=== PATIENT | male | born 1955 | race American Indian/Alaskan Native ===

== ENCOUNTER 2016-08-13 17:52 | Emergency (ER) | payer MEDICARE ==
--- NOTE | 2016-08-13 18:34 | Emergency Department Report ---
Chief Complaint: Psych Stated Complaint: MH EVAL Time Seen by Provider: 08/13/16 18:28 - HPI History of Present Illness: 61-year-old male with history of bipolar depression brought in by police post getting into an argument at his personal detention. Patient states he was getting evicted so he got mad and started cursing with a hammer in his hand. Denies suicidal or homicidal ideations. - ROS Review of Systems: Per HPI - Exam Vital Signs: Vital Signs 08/13/16 18:14 Temperature 99.1 F Pulse Rate 90 Respiratory 18 Rate Blood Pressure 123/74 O2 Sat by Pulse 97 Oximetry Physical Exam: General: 61-year-old male in no acute distress. Well-developed, well-nourished. CV: Regular rate and rhythm. Lungs: Clear to auscultation bilaterally. MSE screening note: Focused history and physical exam performed. Due to findings the following was ordered: ED Disposition for MSE Condition: Stable
[2016-08-13 19:21] LABS: Basophils % (Auto) 0.8 % (0.0-1.8); Eosinophils % (Auto) 1.8 % (0.0-4.3); Hematocrit 41.4 % (35.5-45.6); Hemoglobin 13.7 gm/dl (11.8-15.2); Mean Corpuscular HGB Conc 33 % (32-34); Mean Corpuscular Hemoglobin 29 pg (28-32); Mean Corpuscular Volume 86 fl (84-94); Platelet Count 167 K/mm3 (140-440); Red Cell Distribution Width 13.9 % (13.2-15.2); White Blood Count 8.2 K/mm3 (4.5-11.0)
[2016-08-13 19:43] LABS: BUN/Creatinine Ratio 15.45; Blood Urea Nitrogen 17 mg/dL (9-20); Calcium 8.9 mg/dL (8.4-10.2); Carbon Dioxide 26 mmol/L (22-30); Chloride 99.7 mmol/L (98-107); Glucose 125 mg/dL (75-100); Potassium 4.5 mmol/L (3.6-5.0); Sodium 137 mmol/L (137-145)
[2016-08-13 19:45] LABS: Anion Gap 16 mmol/L
[2016-08-14 02:08] LABS: Urine Drugs of Abuse Note Disclamer
[2016-08-14 02:37] LABS: Bilirubin,Urine NEG (Negative); Blood,Urine SM (Negative); Ketones,Urine NEG (Negative); Leukocyte Esterase,Urine TR (Negative); Mucus,Urine FEW /HPF; Nitrite,Urine NEG (Negative); Protein,Urine <15 mg/dL mg/dL (Negative); RBC,Urine < 1.0 /HPF (0.0-6.0); Urobilinogen,Urine < 2.0 mg/dL (<2.0); WBC,Urine < 1.0 /HPF (0.0-6.0)
--- NOTE | 2016-08-14 03:52 | Emergency Department Report ---
ED General Adult HPI - General Chief complaint: Psych Stated complaint: MH EVAL Time Seen by Provider: 08/13/16 18:28 Source: patient, RN notes reviewed, old records reviewed Mode of arrival: Ambulatory Limitations: No Limitations - History of Present Illness Initial comments: This is a 61-year-old male, previously unknown to me. He is brought to the hospital for evaluation of aggressive behavior. Patient reports being evicted for inappropriately touching staff, he then became upset, and was holding a hammer. He is apologetic about his behavior, he is not homicidal, he is not suicidal, he does not have access to guns or firearms, and he is not experiencing hallucinations. He expresses remorse about his behavior. He denies headache, neck pain, chest pain, abdominal pain, shortness of breath. He has no acute complaints at this time. The patient was seen in conjunction with Mr. Kraig Mijares, the emergency department mental health ecological risk assessor. We both agree that the patient does not meet involuntary folder 1013 criteria. Patient is referred to follow up with [facility] services at [phone]. -: Sudden Severity scale (0 -10): 0 Consistency: now resolved Improves with: none Worsens with: none Associated Symptoms: denies: confusion, chest pain, cough, diaphoresis, fever/ chills, headaches, loss of appetite, malaise, nausea/vomiting, rash, seizure, shortness of breath, syncope, weakness - Related Data Home Medications Medication Instructions Recorded Confirmed Last Taken Benztropine [Cogentin] 1 mg PO BID 07/10/16 07/10/16 07/09/16 Docusate Sodium [Colace] 100 mg PO QAM PRN 07/10/16 07/10/16 07/09/16 Dutasteride [Avodart] 0.5 mg PO QHS 07/10/16 07/10/16 07/09/16 Ergocalciferol (Vitamin D2) 2,000 unit PO QAM 07/10/16 07/10/16 07/09/16 [Vitamin D2] FLUoxetine [PROzac] 20 mg PO QAM 07/10/16 07/10/16 07/09/16 Gabapentin [Neurontin] 400 mg PO Q8HR 07/10/16 07/10/16 07/09/16 Haloperidol [Haldol] 10 mg PO QAM 07/10/16 07/10/16 07/09/16 Haloperidol [Haldol] 15 mg PO QHS 07/10/16 07/10/16 07/09/16 Insulin Glargine [Lantus] 20 unit SUB-Q QHS 07/10/16 07/10/16 07/09/16 Lurasidone HCl [Latuda] 80 mg PO QDAY 07/10/16 07/10/16 07/09/16 Pantoprazole [Protonix] 40 mg PO QAM 07/10/16 07/10/16 07/09/16 Rosuvastatin (Nf) [Crestor] 10 mg PO QHS 07/10/16 07/10/16 07/09/16 Sitagliptin Phos/Metformin HCl 1 tab PO QAM 07/10/16 07/10/16 07/09/16 [Janumet XR 100-1,000 mg] Allergies Allergy/AdvReac Type Severity Reaction Status Date / Time No Known Allergies Allergy Verified 08/13/16 18:21 ED Review of Systems ROS: Stated complaint: MH EVAL Other details as noted in HPI Constitutional: denies: fever, malaise Eyes: denies: vision change ENT: denies: epistaxis, congestion Respiratory: denies: cough Cardiovascular: denies: chest pain Gastrointestinal: denies: abdominal pain Genitourinary: denies: urgency, dysuria Musculoskeletal: denies: back pain, joint swelling, arthralgia Neurological: denies: headache, weakness, paresthesias Psychiatric: denies: homicidal thoughts, suicidal thoughts ED Past Medical Hx - Past Medical History Hx Diabetes: Yes Hx Psychiatric Treatment: Yes (bipolar, DEPRESSION, schizophrenia, inpatient, outpatient) Additional medical history: hi cholest - Surgical History Past Surgical History?: No - Social History Smoking Status: Never Smoker Substance Use Type: Prescribed - Medications Home Medications: Home Medications Medication Instructions Recorded Confirmed Last Taken Type Benztropine [Cogentin] 1 mg PO BID 07/10/16 07/10/16 07/09/16 History Docusate Sodium [Colace] 100 mg PO QAM PRN 07/10/16 07/10/16 07/09/16 History Dutasteride [Avodart] 0.5 mg PO QHS 07/10/16 07/10/16 07/09/16 History Ergocalciferol (Vitamin D2) 2,000 unit PO QAM 07/10/16 07/10/16 07/09/16 History [Vitamin D2] FLUoxetine [PROzac] 20 mg PO QAM 07/10/16 07/10/16 07/09/16 History Gabapentin [Neurontin] 400 mg PO Q8HR 07/10/16 07/10/16 07/09/16 History Haloperidol [Haldol] 10 mg PO QAM 07/10/16 07/10/16 07/09/16 History Haloperidol [Haldol] 15 mg PO QHS 07/10/16 07/10/16 07/09/16 History Insulin Glargine [Lantus] 20 unit SUB-Q QHS 07/10/16 07/10/16 07/09/16 History Lurasidone HCl [Latuda] 80 mg PO QDAY 07/10/16 07/10/16 07/09/16 History Pantoprazole [Protonix] 40 mg PO QAM 07/10/16 07/10/16 07/09/16 History Rosuvastatin (Nf) [Crestor] 10 mg PO QHS 07/10/16 07/10/16 07/09/16 History Sitagliptin Phos/Metformin HCl 1 tab PO QAM 07/10/16 07/10/16 07/09/16 History [Janumet XR 100-1,000 mg] ED Physical Exam - General Limitations: No Limitations General appearance: alert, in no apparent distress - Head Head exam: Present: atraumatic, normocephalic - Eye Eye exam: Present: normal appearance, EOMI. Absent: nystagmus - ENT ENT exam: Present: normal exam, normal orophraynx, mucous membranes moist, normal external ear exam - Neck Neck exam: Present: normal inspection, full ROM. Absent: tenderness, meningismus - Respiratory Respiratory exam: Present: normal lung sounds bilaterally. Absent: respiratory distress - Cardiovascular Cardiovascular Exam: Present: regular rate, normal rhythm, normal heart sounds. Absent: bradycardia, tachycardia, irregular rhythm, systolic murmur, diastolic murmur, rubs, gallop - GI/Abdominal GI/Abdominal exam: Present: soft, normal bowel sounds. Absent: distended, tenderness, guarding, rebound, rigid, pulsatile mass - Rectal Rectal exam: Present: deferred - Extremities Exam Extremities exam: Present: normal inspection, full ROM, normal capillary refill. Absent: tenderness, pedal edema, joint swelling, calf tenderness - Back Exam Back exam: Present: normal inspection, full ROM. Absent: tenderness, CVA tenderness (R), CVA tenderness (L), muscle spasm, paraspinal tenderness, vertebral tenderness - Neurological Exam Neurological exam: Present: alert, oriented X3, normal gait, other (Extraocular movements intact. Tongue midline. No facial droop. Facial sensation intact to light touch in the V1, V2, V3 distribution bilaterally. 5 and 5 strength in 4 extremities.. Sensation is intact to light touch in 4 extremities.). Absent : motor sensory deficit - Psychiatric Psychiatric exam: Absent: homicidal ideation, suicidal ideation - Skin Skin exam: Present: warm, dry, intact, normal color. Absent: rash ED Course Vital Signs 08/13/16 08/14/16 08/14/16 18:14 00:55 04:29 Temperature 99.1 F 98.2 F Pulse Rate 90 86 80 Respiratory 18 20 18 Rate Blood Pressure 123/74 Blood Pressure 135/71 132/70 [Right] O2 Sat by Pulse 97 100 99 Oximetry - Reevaluation(s) Reevaluation #1: 08/14/16 04:40 Differential diagnosis: Mood disorder, general medical evaluation Assessment and plan: 61-year-old male with resolved aggressive behavior. He is not homicidal or suicidal. He is alert and oriented 3. He has a GCS of 15, with an NIH score of 0. His physical examination is unremarkable. He does not meet involuntary hold or 1013 criteria. He will be discharged. 08/14/16 04:40 ED Medical Decision Making - Lab Data Result diagrams: 08/13/16 19:04 08/13/16 19:04 Vital Signs 08/13/16 08/14/16 08/14/16 18:14 00:55 04:29 Temperature 99.1 F 98.2 F Pulse Rate 90 86 80 Respiratory 18 20 18 Rate Blood Pressure 123/74 Blood Pressure 135/71 132/70 [Right] O2 Sat by Pulse 97 100 99 Oximetry Lab Results 08/13/16 08/13/16 08/13/16 Range/Units 19:04 19:04 19:04 WBC 8.2 (4.5-11.0) K/mm3 RBC 4.80 (3.65-5.03) M/mm3 Hgb 13.7 (11.8-15.2) gm/dl Hct 41.4 (35.5-45.6) % MCV 86 (84-94) fl MCH 29 (28-32) pg MCHC 33 (32-34) % RDW 13.9 (13.2-15.2) % Plt Count 167 (140-440) K/mm3 Lymph % (Auto) 16.4 (13.4-35.0) % [place] % (Auto) 10.0 H (0.0-7.3) % Eos % (Auto) 1.8 (0.0-4.3) % Baso % (Auto) 0.8 (0.0-1.8) % Lymph # 1.3 (1.2-5.4) K/mm3 [place] # 0.8 (0.0-0.8) K/mm3 Eos # 0.1 (0.0-0.4) K/mm3 Baso # 0.1 (0.0-0.1) K/mm3 Seg Neutrophils % 71.0 H (40.0-70.0) % Seg Neutrophils # 5.8 (1.8-7.7) K/mm3 Sodium 137 (137-145) mmol/L Potassium 4.5 (3.6-5.0) mmol/L Chloride 99.7 (98-107) mmol/L Carbon Dioxide 26 (22-30) mmol/L Anion Gap 16 mmol/L BUN 17 (9-20) mg/dL Creatinine 1.1 (0.8-1.5) mg/dL Estimated GFR > 60 ml/min BUN/Creatinine Ratio 15.45 % Glucose 125 H (75-100) mg/dL Calcium 8.9 (8.4-10.2) mg/dL Urine Color (Yellow) Urine Turbidity (Clear) Urine pH (5.0-7.0) Ur Specific [place] (1.003-1.030) Urine Protein (Negative) mg/dL Urine Glucose (UA) (Negative) mg/dL Urine Ketones (Negative) mg/dL Urine Blood (Negative) Urine Nitrite (Negative) Urine Bilirubin (Negative) Urine Urobilinogen (<2.0) mg/dL Ur Leukocyte Esterase (Negative) Urine WBC (Auto) (0.0-6.0) /HPF Urine RBC (Auto) (0.0-6.0) /HPF U Epithel Cells (Auto) (0-13.0) /HPF Urine Mucus /HPF Urine Opiates Screen Urine Methadone Screen Ur Barbiturates Screen Ur Phencyclidine Scrn Ur Amphetamines Screen U Benzodiazepines Scrn Urine Cocaine Screen U Marijuana (THC) Screen Drugs of Abuse Note Plasma/Serum Alcohol < 0.01 (0-0.07) gm% 08/14/16 08/14/16 Range/Units 01:02 01:02 WBC (4.5-11.0) K/mm3 RBC (3.65-5.03) M/mm3 Hgb (11.8-15.2) gm/dl Hct (35.5-45.6) % MCV (84-94) fl MCH (28-32) pg MCHC (32-34) % RDW (13.2-15.2) % Plt Count (140-440) K/mm3 Lymph % (Auto) (13.4-35.0) % [place] % (Auto) (0.0-7.3) % Eos % (Auto) (0.0-4.3) % Baso % (Auto) (0.0-1.8) % Lymph # (1.2-5.4) K/mm3 [place] # (0.0-0.8) K/mm3 Eos # (0.0-0.4) K/mm3 Baso # (0.0-0.1) K/mm3 Seg Neutrophils % (40.0-70.0) % Seg Neutrophils # (1.8-7.7) K/mm3 Sodium (137-145) mmol/L Potassium (3.6-5.0) mmol/L Chloride (98-107) mmol/L Carbon Dioxide (22-30) mmol/L Anion Gap mmol/L BUN (9-20) mg/dL Creatinine (0.8-1.5) mg/dL Estimated GFR ml/min BUN/Creatinine Ratio % Glucose (75-100) mg/dL Calcium (8.4-10.2) mg/dL Urine Color Straw (Yellow) Urine Turbidity Clear (Clear) Urine pH 5.0 (5.0-7.0) Ur Specific [place] 1.005 (1.003-1.030) Urine Protein <15 mg/dl (Negative) mg/dL Urine Glucose (UA) 150 (Negative) mg/dL Urine Ketones Neg (Negative) mg/dL Urine Blood Sm (Negative) Urine Nitrite Neg (Negative) Urine Bilirubin Neg (Negative) Urine Urobilinogen < 2.0 (<2.0) mg/dL Ur Leukocyte Esterase Tr (Negative) Urine WBC (Auto) < 1.0 (0.0-6.0) /HPF Urine RBC (Auto) < 1.0 (0.0-6.0) /HPF U Epithel Cells (Auto) < 1.0 (0-13.0) /HPF Urine Mucus Few /HPF Urine Opiates Screen Presumptive negative Urine Methadone Screen Presumptive negative Ur Barbiturates Screen Presumptive negative Ur Phencyclidine Scrn Presumptive negative Ur Amphetamines Screen Presumptive negative U Benzodiazepines Scrn Presumptive negative Urine Cocaine Screen Presumptive negative U Marijuana (THC) Screen Presumptive negative Drugs of Abuse Note Disclamer Plasma/Serum Alcohol (0-0.07) gm% Critical care attestation.: If time is entered above; I have spent that time in minutes in the direct care of this critically ill patient, excluding procedure time. ED Disposition Clinical Impression: Mood disorder Disposition: DISCHARGED TO HOME OR SELFCARE Is pt being admited?: No Does the pt Need Aspirin: No Condition: Stable Instructions: Mood Disorders (ED) Additional Instructions: Please continue your current outpatient medications. Follow up with the primary care doctor within the next week. Contact [facility] at [phone] at your convenience. Return to the ER right away with headache, neck pain, chest pain, abdominal pain, shortness of breath, or any new, worsening or different symptoms not present on your initial ER evaluation. Dr. Child is a local primary care doctor. Referrals: PRIMARY MD BONG [Primary Care Provider] - 3-5 Days KATARINA CHILD MD [Staff Physician] - 3-5 Days
[2016-08-14 04:30] VITALS: BP 132/70
== END 2016-08-14 04:55 | disposition home or self-care (01) ==
LOC: ED 17:52
DX: F39 Unspecified mood [affective] disorder (principal); E11.9 Type 2 diabetes mellitus without complications; F31.9 Bipolar disorder, unspecified; F20.9 Schizophrenia, unspecified; E78.00 Pure hypercholesterolemia, unspecified
CPT/HCPCS: 36415; 80048; 81001; 85025; 99283; G0479; G0480; 80307; 80320

== ENCOUNTER 2017-05-01 19:45 | Emergency (ER) | payer MEDICARE ==
[2017-05-01 20:47] LABS: Basophils % (Auto) 0.9 % (0.0-1.8); Eosinophils % (Auto) 1.2 % (0.0-4.3); Hemoglobin 14.3 gm/dl (11.8-15.2); Mean Corpuscular HGB Conc 34 % (32-34); Mean Corpuscular Hemoglobin 30 pg (28-32); Mean Corpuscular Volume 89 fl (84-94); Platelet Count 152 K/mm3 (140-440); Red Blood Count 4.74 M/mm3 (3.65-5.03); Red Cell Distribution Width 13.2 % (13.2-15.2); White Blood Count 6.8 K/mm3 (4.5-11.0)
[2017-05-01 20:52] LABS: Anion Gap 18 mmol/L; BUN/Creatinine Ratio 10.83; Blood Urea Nitrogen 13 mg/dL (9-20); Calcium 9.3 mg/dL (8.4-10.2); Carbon Dioxide 28 mmol/L (22-30); Chloride 91.3 mmol/L (98-107); Glucose 500 mg/dL (75-100); Potassium 5.1 mmol/L (3.6-5.0); Sodium 132 mmol/L (137-145)
[2017-05-01 21:54] LABS: Bilirubin,Urine NEG (Negative)
[2017-05-01 21:55] LABS: Blood,Urine NEG (Negative); Ketones,Urine NEG (Negative); Leukocyte Esterase,Urine NEG (Negative); Nitrite,Urine NEG (Negative); Protein,Urine <15 mg/dL mg/dL (Negative); Urobilinogen,Urine < 2.0 mg/dL (<2.0)
[2017-05-02] MEDS ORDERED: GLUCOPHAGE PO ONE (04:15)
[2017-05-02] MEDS ORDERED: NACL 0.9% 1000 ML 1,000 ML IV ONE (08:24)
[2017-05-02] MEDS ORDERED: NEURONTIN PO ONE (08:25)
--- NOTE | 2017-05-02 09:43 | Emergency Department Report ---
HPI - General Chief Complaint: Hyperglycemia Time Seen by Provider: 05/02/17 07:21 - HPI HPI: The patient is a 61-year-old male with a history of diabetes and peripheral neuropathy who presents for evaluation of leg pain. The patient reports bilateral lower leg pain for the past one day, 10/10 in severity, burning and sharp in quality, exacerbated with movement of the lower legs. The patient denies fever, trauma to the legs or feet, redness, change, motor deficit, or open wounds. ED Past Medical Hx - Past Medical History Hx Diabetes: Yes Hx Psychiatric Treatment: Yes (bipolar, DEPRESSION, schizophrenia, inpatient, outpatient) Additional medical history: hi cholest - Social History Smoking Status: Never Smoker Substance Use Type: None - Medications Home Medications: Home Medications Medication Instructions Recorded Confirmed Last Taken Type Benztropine [Cogentin] 1 mg PO BID 07/10/16 07/10/16 07/09/16 History Docusate Sodium [Colace] 100 mg PO QAM PRN 07/10/16 07/10/16 07/09/16 History Dutasteride [Avodart] 0.5 mg PO QHS 07/10/16 07/10/16 07/09/16 History Ergocalciferol (Vitamin D2) 2,000 unit PO QAM 07/10/16 07/10/16 07/09/16 History [Vitamin D2] FLUoxetine [PROzac] 20 mg PO QAM 07/10/16 07/10/16 07/09/16 History Haloperidol [Haldol] 10 mg PO QAM 07/10/16 07/10/16 07/09/16 History Haloperidol [Haldol] 15 mg PO QHS 07/10/16 07/10/16 07/09/16 History Insulin Glargine [Lantus] 20 unit SUB-Q QHS 07/10/16 07/10/16 07/09/16 History Lurasidone HCl [Latuda] 80 mg PO QDAY 07/10/16 07/10/16 07/09/16 History Pantoprazole [Protonix] 40 mg PO QAM 07/10/16 07/10/16 07/09/16 History Rosuvastatin (Nf) [Crestor] 10 mg PO QHS 07/10/16 07/10/16 07/09/16 History Sitagliptin Phos/Metformin HCl 1 tab PO QAM 07/10/16 07/10/16 07/09/16 History [Janumet XR 100-1,000 mg] Gabapentin [Neurontin] 300 mg PO Q8HR #20 capsule 05/02/17 Unknown Rx traMADol [Ultram 50 MG tab] 50 mg PO Q6HR PRN #15 tablet 05/02/17 Unknown Rx ED Review of Systems ROS: Stated complaint: HIGH BLOOD SUGAR Other details as noted in HPI Constitutional: denies: fever ENT: denies: throat or neck pain Respiratory: denies: cough, shortness of breath Cardiovascular: denies: chest pain Endocrine: denies unexplained weight loss or gain Gastrointestinal: denies: abdominal pain, nausea Genitourinary: denies: dysuria Musculoskeletal: reports leg pain denies: leg swelling Skin: denies: rash Neurological: denies: headache Hematological/Lymphatic: denies: easy bleeding or easy bruising Psych: denies sadness or hopelessness Physical Exam - Physical Exam Vital Signs: Vital Signs 05/01/17 05/02/17 05/02/17 20:05 00:16 02:10 Temperature 98.3 F 98.0 F Pulse Rate 73 69 Respiratory 18 20 20 Rate Blood Pressure 133/67 125/66 Blood Pressure 133/67 [Left] O2 Sat by Pulse 98 99 99 Oximetry 05/02/17 05/02/17 05/02/17 02:48 03:00 03:15 Temperature Pulse Rate Respiratory Rate Blood Pressure 123/60 123/60 Blood Pressure [Left] O2 Sat by Pulse 98 95 98 Oximetry 05/02/17 05/02/17 05/02/17 03:30 03:34 03:45 Temperature 98.6 F Pulse Rate 51 L Respiratory 18 Rate Blood Pressure 122/63 123/60 Blood Pressure 134/63 [Left] O2 Sat by Pulse 95 99 96 Oximetry 05/02/17 05/02/17 05/02/17 04:01 04:30 05:00 Temperature Pulse Rate Respiratory Rate Blood Pressure 134/65 116/55 120/56 Blood Pressure [Left] O2 Sat by Pulse 95 94 94 Oximetry 05/02/17 05/02/17 05/02/17 05:37 06:00 06:30 Temperature Pulse Rate Respiratory Rate Blood Pressure 120/56 139/55 117/56 Blood Pressure [Left] O2 Sat by Pulse 99 97 97 Oximetry 05/02/17 05/02/17 05/02/17 07:30 07:49 08:00 Temperature Pulse Rate 64 Respiratory 16 Rate Blood Pressure 126/40 126/40 Blood Pressure 126/40 [Left] O2 Sat by Pulse 98 98 96 Oximetry 05/02/17 08:33 Temperature Pulse Rate Respiratory Rate Blood Pressure 115/43 Blood Pressure [Left] O2 Sat by Pulse 91 Oximetry Physical Exam: General: well-nourished, well-developed, no acute distress Head: Normocephalic, atraumatic Eyes: normal sclera ENT: Mucous membranes are pale and dry Neck: No neck stiffness, no cervical adenopathy Respiratory: Breath sounds equal bilaterally, no wheezing, rales, or rhonchi Cardio: S1 and S2 present, no murmurs, rubs, gallops, capillary refill is delayed Abdomen: Normoactive bowel sounds, soft abdomen, no rigidity, no guarding or rebound tenderness Chest WALL/Back: No tenderness to palpation of the chest wall, no CVA tenderness with percussion Musc: Chest palpation presents to the bilateral anterior and posterior distal lower legs, no sensation or motor deficit, leg compartments are soft and pliable , no signs compartments syndrome No pitting edema Skin: No rash Neuro: no facial drooping, normal speech Psych: Normal affect ED Course Vital Signs 05/01/17 05/02/17 05/02/17 20:05 00:16 02:10 Temperature 98.3 F 98.0 F Pulse Rate 73 69 Respiratory 18 20 20 Rate Blood Pressure 133/67 125/66 Blood Pressure 133/67 [Left] O2 Sat by Pulse 98 99 99 Oximetry 05/02/17 05/02/17 05/02/17 02:48 03:00 03:15 Temperature Pulse Rate Respiratory Rate Blood Pressure 123/60 123/60 Blood Pressure [Left] O2 Sat by Pulse 98 95 98 Oximetry 05/02/17 05/02/17 05/02/17 03:30 03:34 03:45 Temperature 98.6 F Pulse Rate 51 L Respiratory 18 Rate Blood Pressure 122/63 123/60 Blood Pressure 134/63 [Left] O2 Sat by Pulse 95 99 96 Oximetry 05/02/17 05/02/17 05/02/17 04:01 04:30 05:00 Temperature Pulse Rate Respiratory Rate Blood Pressure 134/65 116/55 120/56 Blood Pressure [Left] O2 Sat by Pulse 95 94 94 Oximetry 05/02/17 05/02/17 05/02/17 05:37 06:00 06:30 Temperature Pulse Rate Respiratory Rate Blood Pressure 120/56 139/55 117/56 Blood Pressure [Left] O2 Sat by Pulse 99 97 97 Oximetry 05/02/17 05/02/17 05/02/17 07:30 07:49 08:00 Temperature Pulse Rate 64 Respiratory 16 Rate Blood Pressure 126/40 126/40 Blood Pressure 126/40 [Left] O2 Sat by Pulse 98 98 96 Oximetry 05/02/17 08:33 Temperature Pulse Rate Respiratory Rate Blood Pressure 115/43 Blood Pressure [Left] O2 Sat by Pulse 91 Oximetry ED Medical Decision Making - Lab Data Result diagrams: 05/01/17 20:18 05/01/17 20:18 - Medical Decision Making The patient was seen and examined by myself. The patient is placed on a loss prevention agent and continuous pulse ox. On initial evaluation, the patient was found to be in no distress. Evaluation orders are placed. The patient is given , metformin for his elevated blood sugar. Lab results revealed elevated blood sugar 500, and otherwise labs were non-concerning including normal bicarbonate level and anion gap, WBC, hemoglobin, hematocrit, electrolytes, renal function. The patient refuses normal saline fluid bolus for treatment of his dehydration , insulin for further treatment of his hypertension, and pain medicine. The patient was reevaluated and reported that their symptoms were improved. Reevaluation patient blood sugar has decreased to 280. The patient is stable for discharge with outpatient follow-up. The patient is given follow-up and return instructions. The patient expressed understanding and agreed with the plan. The patient is discharged in stable condition. Critical care attestation.: If time is entered above; I have spent that time in minutes in the direct care of this critically ill patient, excluding procedure time. ED Disposition Clinical Impression: Acute hyperglycemia, Dehydration, Pain in both lower legs Disposition: DC-01 TO HOME OR SELFCARE Is pt being admited?: No Does the pt Need Aspirin: No Condition: Stable Instructions: Diabetic Neuropathy (ED), Peripheral Neuropathy (ED), Musculoskeletal Pain (ED), Diabetic Hyperglycemia (ED) Prescriptions: Gabapentin [Neurontin] 300 mg PO Q8HR #20 capsule traMADol [Ultram 50 MG tab] 50 mg PO Q6HR PRN #15 tablet PRN Reason: Pain Referrals: BEAU MOORE MD [Primary Care Provider] - 3-5 Days Time of Disposition: 09:34
[2017-05-02 10:22] VITALS: BP 115/43
== END 2017-05-02 10:10 | disposition home or self-care (01) ==
LOC: ED 19:45
DX: M79.604 Pain in right leg (principal); M79.605 Pain in left leg; E86.0 Dehydration; E11.65 Type 2 diabetes mellitus with hyperglycemia; F20.9 Schizophrenia, unspecified; F31.9 Bipolar disorder, unspecified
CPT/HCPCS: 36415; 80048; 81001; 82805; 82962; 85025

== ENCOUNTER 2017-12-16 22:44 | Emergency (ER) | payer MEDICARE ==
[2017-12-16 23:38] VITALS: BP 134/61
--- NOTE | 2017-12-17 04:53 | Emergency Department Report ---
ED Back Pain/Injury HPI - General Chief Complaint: Back Pain/Injury Stated Complaint: BACK PAIN; LEG PAIN Time Seen by Provider: 12/17/17 04:36 Source: patient Limitations: No Limitations - History of Present Illness Initial Comments: This is a 62-year-old -Serbian male who presents with low back pain and neck pain from a fall 3 days ago. Patient reports initial fall one month ago and he has been having then low back pain and numbness and tingling every since the fall. He has tried taking an [id number] tylenol with no improvement of symptoms. Pain is aggravated by standing, walking and any kind of movement. Denies hearing a popping sound, swelling, redness, and numbness or tingling. MD Complaint: back pain -: days(s) (3 days) Similar Symptoms Previously: No Place: home Radiation: none Severity: mild Severity scale (0 -10): 6 Quality: aching Consistency: intermittent Improves With: none Worsens With: movement, walking Context: fall Associated Symptoms: denies other symptoms Treatments Prior to Arrival: acetaminophen - Related Data Home Medications Medication Instructions Recorded Confirmed Last Taken Benztropine [Cogentin] 1 mg PO BID 07/10/16 07/10/16 07/09/16 Docusate Sodium [Colace] 100 mg PO QAM PRN 07/10/16 07/10/16 07/09/16 Dutasteride [Avodart] 0.5 mg PO QHS 07/10/16 07/10/16 07/09/16 Ergocalciferol (Vitamin D2) 2,000 unit PO QAM 07/10/16 07/10/16 07/09/16 [Vitamin D2] FLUoxetine [PROzac] 20 mg PO QAM 07/10/16 07/10/16 07/09/16 Haloperidol [Haldol] 10 mg PO QAM 07/10/16 07/10/16 07/09/16 Haloperidol [Haldol] 15 mg PO QHS 07/10/16 07/10/16 07/09/16 Insulin Glargine [Lantus] 20 unit SUB-Q QHS 07/10/16 07/10/16 07/09/16 Lurasidone HCl [Latuda] 80 mg PO QDAY 07/10/16 07/10/16 07/09/16 Pantoprazole [Protonix] 40 mg PO QAM 07/10/16 07/10/16 07/09/16 Rosuvastatin (Nf) [Crestor] 10 mg PO QHS 07/10/16 07/10/16 07/09/16 Sitagliptin Phos/Metformin HCl 1 tab PO QAM 07/10/16 07/10/16 07/09/16 [Janumet XR 100-1,000 mg] Previous Rx's Medication Instructions Recorded Last Taken Type Gabapentin [Neurontin] 300 mg PO Q8HR #20 capsule 05/02/17 Unknown Rx traMADol [Ultram 50 MG tab] 50 mg PO Q6HR PRN #15 tablet 05/02/17 Unknown Rx Diclofenac Sodium 50 mg PO BID PRN #20 tablet. 12/17/17 Unknown Rx Allergies Allergy/AdvReac Type Severity Reaction Status Date / Time No Known Allergies Allergy Verified 08/13/16 18:21 ED Review of Systems ROS: Stated complaint: BACK PAIN; LEG PAIN Other details as noted in HPI Constitutional: denies: chills, fever Respiratory: denies: cough, shortness of breath, wheezing Cardiovascular: denies: chest pain, palpitations Gastrointestinal: denies: abdominal pain, nausea, diarrhea Musculoskeletal: back pain (low back pain), arthralgia (bilateral hip pain). denies: joint swelling Neurological: denies: headache, weakness, paresthesias Psychiatric: denies: anxiety, depression ED Past Medical Hx - Past Medical History [facility] ED Back Pain Physical Exam - Exam General: Vital signs noted. No distress. Alert and acting appropriately. Back/Abdomen: Yes Sacroiliac Tenderness, Yes Straight Leg Raise Pain, No Abdominal Tenderness, No Perithoracic Tenderness, No Perilumbar Tenderness, No Flank Tenderness Neuro: Yes Normal Sensation, Yes Normal DTR's, No Motor Weakness, No Normal Gait ED Course Vital Signs 12/16/17 23:35 Temperature 98.3 F Pulse Rate 68 Respiratory 18 Rate Blood Pressure 134/61 O2 Sat by Pulse 99 Oximetry ED Medical Decision Making - Radiology Data Radiology results: report reviewed EXAM: XR SPINE LUMBOSACRAL 2-3V HISTORY: low back pain s/p fall TECHNIQUE: Three views of the lumbar spine were submitted. FINDINGS: There is moderate narrowing of the L5-S1 disc with endplate spurring. The remaining lumbar discs are normal in height with endplate spurring at the L4-5 level. There is no evidence of fracture. The soft tissues are unremarkable. IMPRESSION: Degenerative changes lower lumbar spine with endplate spurring. No acute injury. EXAM: XR HIPS BILAT 2V W/PELVIS HISTORY: vinicius hip pain s/p fall TECHNIQUE: An AP view the pelvis was obtained with bilateral frogleg views of the hip joints. FINDINGS: Both hip joints appear well maintained. There is no evidence of fracture or joint effusion. The bony pelvic ring appears intact. The SI joints appear normal. The soft tissues are unremarkable. IMPRESSION: Within normal limits. - Medical Decision Making This is a 62 y.o. male presents with low back pain and bilateral heel pain status post fall 3 days ago. Patient was examined by me. Vitals are stable. X- ray L-spine and bilateral hips obtained. Degenerative changes lower lumbar spine with endplate spurring. No acute injury. No acute findings and bilateral hips. Patient informed of results. Start diclofenac for osteoarthritis. Follow up with PCP for management of pain. Critical care attestation.: If time is entered above; I have spent that time in minutes in the direct care of this critically ill patient, excluding procedure time. ED Disposition Clinical Impression: Osteoarthritis of back Qualifiers: Spinal osteoarthritis complication: with radiculopathy Qualified Code(s): M47.25 - Other spondylosis with radiculopathy, thoracolumbar region Disposition: TO HOME OR SELFCARE Is pt being admited?: No Does the pt Need Aspirin: No Condition: Stable Instructions: Osteoarthritis (ED), Lumbar Radiculopathy (ED) Additional Instructions: Rest Use ice or heat on affected area for 20 minutes and off for 2 hours. Take pain medication as needed for pain. Follow up with Primary Care Provider in 2-3 days. Prescriptions: Diclofenac Sodium 50 mg PO BID PRN #20 tablet.dr BAKER Reason: Pain Referrals: KIMBERLY JOSÉ MD [Primary Care Provider] - 3-5 Days [facility] [Outside] - 3-5 Days [facility] [Outside] - 3-5 Days Time of Disposition: 05:40 Print Language: TOGOLESE
--- NOTE | 2017-12-17 05:14 | XRay Report ---
FINAL REPORT EXAM: XR SPINE LUMBOSACRAL 2-3V HISTORY: low back pain s/p fall TECHNIQUE: Three views of the lumbar spine were submitted. FINDINGS: There is moderate narrowing of the L5-S1 disc with endplate spurring. The remaining lumbar discs are normal in height with endplate spurring at the L4-5 level. There is no evidence of fracture. The soft tissues are unremarkable. IMPRESSION: Degenerative changes lower lumbar spine with endplate spurring. No acute injury.
--- NOTE | 2017-12-17 05:15 | XRay Report ---
FINAL REPORT EXAM: XR HIPS BILAT 2V W/PELVIS HISTORY: vinicius hip pain s/p fall TECHNIQUE: An AP view the pelvis was obtained with bilateral frogleg views of the hip joints. FINDINGS: Both hip joints appear well maintained. There is no evidence of fracture or joint effusion. The bony pelvic ring appears intact. The SI joints appear normal. The soft tissues are unremarkable. IMPRESSION: Within normal limits.
== END 2017-12-17 05:58 | disposition home or self-care (01) ==
LOC: ED 22:44
DX: M47.25 Other spondylosis with radiculopathy, thoracolumbar region (principal); E78.00 Pure hypercholesterolemia, unspecified; Z79.899 Other long term (current) drug therapy
CPT/HCPCS: 72100; 73521; 99283

== ENCOUNTER 2018-02-10 13:56 | Emergency (ER) | payer MEDICARE ==
[2018-02-10 14:04] VITALS: BP 116/65
[2018-02-10] MEDS ORDERED: MOTRIN PO ONE (14:34)
--- NOTE | 2018-02-10 14:42 | Emergency Department Report ---
<ARI FONTENOT - Last Filed: 02/10/18 15:37> ED General Adult HPI - General Chief complaint: Extremity Injury, Lower Stated complaint: LEG PAIN Time Seen by Provider: 02/10/18 14:26 Source: patient, EMS Mode of arrival: Wheelchair Limitations: No Limitations - History of Present Illness Initial comments: This is a 62-year-old male nontoxic, well nourished in appearance, no acute signs of distress presents to the ED with c/o of acute on chronic bilateral leg pain and cramping 2-3 months. Patient denies any trauma. Patient states he has been diagnosed with diabetic neuropathy and receives Pain with minimal to no relief. Patient denies any numbness, tingling, fever, chills, nausea, vomiting, headache, stiff neck, back pain, chest pain or shortness of breath. She denies any urinary symptoms. Patient denies any body aches. Patient denies any weakness. Patient denies any recent travels. Patient denies any calf pain or calf tenderness or redness or swelling. Patient denies any drug allergies. Past medical history includes diabetes, psychiatric. -: month(s) (3) Location: lower extremity Radiation: non-radiation Severity scale (0 -10): 3 Quality: aching, other (cramping) Consistency: intermittent Improves with: none Worsens with: none Associated Symptoms: denies other symptoms. denies: confusion, chest pain, cough, diaphoresis, fever/chills, headaches, loss of appetite, malaise, nausea/ vomiting, rash, seizure, shortness of breath, syncope, weakness Treatments Prior to Arrival: none - Related Data Home Medications Medication Instructions Recorded Confirmed Last Taken Benztropine [Cogentin] 1 mg PO BID 07/10/16 07/10/16 07/09/16 Docusate Sodium [Colace] 100 mg PO QAM PRN 07/10/16 07/10/16 07/09/16 Dutasteride [Avodart] 0.5 mg PO QHS 07/10/16 07/10/16 07/09/16 Ergocalciferol (Vitamin D2) 2,000 unit PO QAM 07/10/16 07/10/16 07/09/16 [Vitamin D2] FLUoxetine [PROzac] 20 mg PO QAM 07/10/16 07/10/1616 Haloperidol [Haldol] 10 mg PO QAM 07/10/16 07/10/16 07/09/16 Haloperidol [Haldol] 15 mg PO QHS 07/10/16 07/10/16 07/09/16 Insulin Glargine [Lantus] 20 unit SUB-Q QHS 07/10/16 07/10/16 07/09/16 Lurasidone HCl [Latuda] 80 mg PO QDAY 07/10/16 07/10/16 07/09/16 Pantoprazole [Protonix] 40 mg PO QAM 07/10/16 07/10/16 07/09/16 Rosuvastatin (Nf) [Crestor] 10 mg PO QHS 07/10/16 07/10/16 07/09/16 Sitagliptin Phos/Metformin HCl 1 tab PO QAM 07/10/16 07/10/16 07/09/16 [Janumet XR 100-1,000 mg] Previous Rx's Medication Instructions Recorded Last Taken Type Gabapentin [Neurontin] 300 mg PO Q8HR #20 capsule 05/02/17 Unknown Rx traMADol [Ultram 50 MG tab] 50 mg PO Q6HR PRN #15 tablet 05/02/17 Unknown Rx Diclofenac Sodium 50 mg PO BID PRN #20 tablet. 12/17/17 Unknown Rx Ibuprofen [Motrin] 600 mg PO Q8H PRN #30 tablet 02/10/18 Unknown Rx Allergies Allergy/AdvReac Type Severity Reaction Status Date / Time No Known Allergies Allergy Verified 02/10/18 14:03 ED Review of Systems ROS: Stated complaint: LEG PAIN Other details as noted in HPI Constitutional: denies: chills, fever Eyes: denies: eye pain, eye discharge, vision change ENT: denies: ear pain, throat pain Respiratory: denies: cough, shortness of breath, wheezing Cardiovascular: denies: chest pain, palpitations Endocrine: no symptoms reported Gastrointestinal: denies: abdominal pain, nausea, diarrhea Genitourinary: denies: urgency, dysuria Musculoskeletal: arthralgia. denies: back pain, joint swelling Skin: denies: rash, lesions Neurological: denies: headache, weakness, paresthesias Psychiatric: denies: anxiety, depression Hematological/Lymphatic: denies: easy bleeding, easy bruising ED Past Medical Hx - Past Medical History Previous Medical History?: Yes Hx Diabetes: Yes Hx Psychiatric Treatment: Yes (bipolar, DEPRESSION, schizophrenia, inpatient, outpatient) Additional medical history: HLD - Surgical History Past Surgical History?: No - Social History Smoking Status: Never Smoker Substance Use Type: None - Medications Home Medications: Home Medications Medication Instructions Recorded Confirmed Last Taken Type Benztropine [Cogentin] 1 mg PO BID 07/10/16 07/10/16 07/09/16 History Docusate Sodium [Colace] 100 mg PO QAM PRN 07/10/16 07/10/16 07/09/16 History Dutasteride [Avodart] 0.5 mg PO QHS 07/10/16 07/10/16 07/09/16 History Ergocalciferol (Vitamin D2) 2,000 unit PO QAM 07/10/16 07/10/16 07/09/16 History [Vitamin D2] FLUoxetine [PROzac] 20 mg PO QAM 07/10/16 07/10/16 07/09/16 History Haloperidol [Haldol] 10 mg PO QAM 07/10/16 07/10/16 07/09/16 History Haloperidol [Haldol] 15 mg PO QHS 07/10/16 07/10/16 07/09/16 History Insulin Glargine [Lantus] 20 unit SUB-Q QHS 07/10/16 07/10/16 07/09/16 History Lurasidone HCl [Latuda] 80 mg PO QDAY 07/10/16 07/10/16 07/09/16 History Pantoprazole [Protonix] 40 mg PO QAM 07/10/16 07/10/16 07/09/16 History Rosuvastatin (Nf) [Crestor] 10 mg PO QHS 07/10/16 07/10/16 07/09/16 History Sitagliptin Phos/Metformin HCl 1 tab PO QAM 07/10/16 07/10/16 07/09/16 History [Janumet XR 100-1,000 mg] Gabapentin [Neurontin] 300 mg PO Q8HR #20 capsule 05/02/17 Unknown Rx traMADol [Ultram 50 MG tab] 50 mg PO Q6HR PRN #15 tablet 05/02/17 Unknown Rx Diclofenac Sodium 50 mg PO BID PRN #20 tablet. 12/17/17 Unknown Rx Ibuprofen [Motrin] 600 mg PO Q8H PRN #30 tablet 02/10/18 Unknown Rx ED Physical Exam - General Limitations: No Limitations General appearance: alert, in no apparent distress - Head Head exam: Present: atraumatic, normocephalic - Eye Eye exam: Present: normal appearance Pupils: Present: normal accommodation - ENT ENT exam: Present: normal exam, mucous membranes moist - Neck Neck exam: Present: normal inspection, full ROM. Absent: tenderness, meningismus, lymphadenopathy - Respiratory Respiratory exam: Present: normal lung sounds bilaterally. Absent: respiratory distress, wheezes, rales, rhonchi, stridor, chest wall tenderness, accessory muscle use, decreased breath sounds, prolonged expiratory - Cardiovascular Cardiovascular Exam: Present: regular rate, normal rhythm, normal heart sounds. Absent: bradycardia, tachycardia, irregular rhythm, systolic murmur, diastolic murmur, rubs, gallop - GI/Abdominal GI/Abdominal exam: Present: soft, normal bowel sounds. Absent: distended, tenderness, guarding, rebound, rigid, diminished bowel sounds - Rectal Rectal exam: Present: deferred - Extremities Exam Extremities exam: Present: normal inspection, full ROM, normal capillary refill. Absent: tenderness, pedal edema, joint swelling, calf tenderness - Expanded Lower Extremity Exam Left Hip exam: Present: normal inspection (bilateral exam), full ROM (bilateral exam) . Absent: tenderness, swelling Upper Leg exam: Present: normal inspection (bilateral exam), full ROM ( bilateral exam). Absent: tenderness, swelling Knee exam: Present: normal inspection (bilateral exam), full ROM (bilateral exam ). Absent: tenderness, swelling Lower Leg exam: Present: normal inspection (bilateral exam), full ROM ( bilateral exam). Absent: tenderness, swelling, abrasion, laceration, ecchymosis , deformity, crepidus, dislocation, erythema, palpable cord, Ana's sign Ankle exam: Present: normal inspection (bilateral exam), full ROM. Absent: tenderness, swelling Foot/Toe exam: Present: normal inspection (bilateral exam), full ROM (bilateral exam). Absent: tenderness, swelling Neuro vascular tendon exam: Present: no vascular compromise (bilateral exam). Absent: pulse deficit, abnormal cap refill, motor deficit, sensory deficit, tendon deficit, extremity cold to touch, pallor, abnormal 2-point discrimination , decreased fine/light touch, foot drop, peroneal nerve deficit, significant pain with passive ROM of distal joint Gait: Positive: observed and normal (bilateral exam) - Back Exam Back exam: Present: normal inspection, full ROM. Absent: tenderness, CVA tenderness (R), CVA tenderness (L), muscle spasm, paraspinal tenderness, vertebral tenderness, rash noted - Neurological Exam Neurological exam: Present: alert, oriented X3, normal gait - Psychiatric Psychiatric exam: Present: normal affect, normal mood - Skin Skin exam: Present: warm, dry, intact, normal color. Absent: rash ED Course Vital Signs 02/10/18 14:01 Temperature 98.4 F Pulse Rate 72 Respiratory 18 Rate Blood Pressure 116/65 O2 Sat by Pulse 99 Oximetry - Reevaluation(s) Reevaluation #1: 02/10/18 14:44 Patient is speaking in full sentences with no signs of distress noted. ED Medical Decision Making - Lab Data Result diagrams: 02/10/18 15:04 02/10/18 15:04 - Medical Decision Making This is a 62-year-old male that presents with diabetic neuropathy pain. Patient is stable and was examined by me. Labs obtained. CK obtained. Patient received Motrin in the ED which patient stated that his symptoms are improving and subsided. Patient is discharged with Motrin. Wells criteria 0 point for DVT. No calf pain or calf tenderness. Patient was instructed to Follow-up with a primary care doctor in 3-5 days or if symptoms worsen and continue return to emergency room as soon as possible. At time of discharge, the patient does not seem toxic or ill in appearance. No acute signs of distress noted. Patient agrees to discharge treatment plan of care. No further questions noted by the patient. Critical care attestation.: If time is entered above; I have spent that time in minutes in the direct care of this critically ill patient, excluding procedure time. ED Disposition Disposition: [id number]-01 TO HOME OR SELFCARE Is pt being admited?: No Does the pt Need Aspirin: No Condition: Stable Instructions: Diabetes Mellitus Type 2 in Adults (ED), Diabetic Neuropathy (ED) Additional Instructions: Follow-up with a primary care doctor in 3-5 days or if symptoms worsen and continue return to emergency room as soon as possible. Prescriptions: Ibuprofen [Motrin] 600 mg PO Q8H PRN #30 tablet PRN Reason: Pain Referrals: IRIS OCONNELL [Other] - 3-5 Days PRIMARY CARE, [Referring] - 3-5 Days KATARINA CHILD MD [Staff Physician] - 3-5 Days [facility] [Outside] - 3-5 Days <WILFREDO VINCENT - Last Filed: 02/10/18 17:05> ED Medical Decision Making - Lab Data Result diagrams: 02/10/18 15:04 02/10/18 15:04 - Medical Decision Making I did not see this patient. I was available for consultation the entire time the patient was in the department. I have reviewed the CASHIER ASSISTANT/PAs note and agree with the plan.
[2018-02-10 15:18] LABS: Basophils # (Auto) 0.1 K/mm3 (0.0-0.1); Basophils % (Auto) 1.3 % (0.0-1.8); Eosinophils # (Auto) 0.1 K/mm3 (0.0-0.4); Eosinophils % (Auto) 1.8 % (0.0-4.3); Lymphocytes # (Auto) 1.9 K/mm3 (1.2-5.4); Lymphocytes % (Auto) 34.5 % (13.4-35.0); Mean Corpuscular HGB Conc 33 % (32-34); Mean Corpuscular Hemoglobin 29 pg (28-32); Mean Corpuscular Volume 87 fl (84-94); Monocytes # (Auto) 0.5 K/mm3 (0.0-0.8); Monocytes % (Auto) 9.7 % (0.0-7.3); Platelet Count 158 K/mm3 (140-440); Red Blood Count 4.81 M/mm3 (3.65-5.03); Red Cell Distribution Width 12.7 % (13.2-15.2)
[2018-02-10 15:35] LABS: BUN/Creatinine Ratio 19; Blood Urea Nitrogen 17 mg/dL (9-20); Calcium 8.6 mg/dL (8.4-10.2); Hemolysis Index 8
== END 2018-02-10 16:01 | disposition home or self-care (01) ==
LOC: ED 13:56
DX: E11.9 Type 2 diabetes mellitus without complications (principal); F31.9 Bipolar disorder, unspecified; Z79.4 Long term (current) use of insulin
CPT/HCPCS: 36415; 80048; 82550; 85025

== ENCOUNTER 2020-07-02 16:38 | Emergency (ER) | payer MEDICARE ==
[2020-07-02] MEDS ORDERED: SODIUM CHLORIDE 0.9% 1000 ML 1,000 ML ONE (17:14)
[2020-07-02] MEDS ORDERED: SODIUM CHLORIDE 0.9% 1000 ML 1,000 ML IV ONE (17:19)
--- NOTE | 2020-07-02 17:21 | Emergency Department Report ---
ED Dizziness HPI - General Chief Complaint: Dizziness Stated Complaint: LOW BLOOD PRESSURE Time Seen by Provider: 07/02/20 17:07 Source: patient, EMS Mode of arrival: Ambulatory Limitations: No Limitations - History of Present Illness Initial Comments: 65-year-old male, history of bipolar, schizophrenia, hypertension, presents to ED with low blood pressure. Patient states he had an appointment at his psychiatrist's office and was found to have low blood pressure. States systolic BP was in the 90s. Patient reports he has been having dizziness off and on for several months now. Patient states it is worse when goes from sitting to standing. Patient states he was seen by his PCP approximately 1 month ago and his blood pressure was low at that time, however he states he was not taken off of his blood pressure medication. Patient reports he takes lisinopril, Haldol, Cogentin, Benadryl. Patient denies any headache, fever, cough, chest pain, shortness of breath, abdominal pain, vomiting, diarrhea, bloody stools, or overdose. MD Complaint: dizziness -: month(s) Timing: intermittent Description: lightheadedness History of Same: Yes Severity: mild Improves With: other (Sitting down) Worsens With: position Associated Symptoms: denies: chest pain, cough, fever/chills, shortness of breath, syncope - Related Data Home Medications Medication Instructions Recorded Confirmed Last Taken Benztropine [Cogentin] 1 mg PO BID 07/10/16 07/10/16 07/09/16 Docusate Sodium [Colace] 100 mg PO QAM PRN 07/10/16 07/10/16 07/09/16 Dutasteride [Avodart] 0.5 mg PO QHS 07/10/16 07/10/16 07/09/16 Ergocalciferol (Vitamin D2) 2,000 unit PO QAM 07/10/16 07/10/16 07/09/16 [Vitamin D2] FLUoxetine [PROzac] 20 mg PO QAM 07/10/16 07/10/16 07/09/16 Insulin Glargine [Lantus] 20 unit SUB-Q QHS 07/10/16 07/10/16 07/09/16 Lurasidone HCl [Latuda] 80 mg PO QDAY 07/10/16 07/10/16 07/09/16 Pantoprazole [Protonix] 40 mg PO QAM 07/10/16 07/10/16 07/09/16 Rosuvastatin (Nf) [Crestor] 10 mg PO QHS 07/10/16 07/10/16 07/09/16 Sitagliptin Phos/Metformin HCl 1 tab PO QAM 07/10/16 07/10/16 07/09/16 [Janumet XR 100-1,000 mg] haloperidoL [Haldol] 10 mg PO QAM 07/10/16 07/10/16 07/09/16 haloperidoL [Haldol] 15 mg PO QHS 07/10/16 07/10/16 07/09/16 Previous Rx's Medication Instructions Recorded Last Taken Type Gabapentin 300 mg PO Q8HR #20 capsule 05/02/17 Unknown Rx traMADoL [Ultram 50 MG tab] 50 mg PO Q6HR PRN #15 tablet 05/02/17 Unknown Rx Diclofenac Sodium 50 mg PO BID PRN #20 tablet. 12/17/17 Unknown Rx Ibuprofen [Motrin] 600 mg PO Q8H PRN #30 tablet 02/10/18 Unknown Rx Allergies Allergy/AdvReac Type Severity Reaction Status Date / Time No Known Allergies Allergy Verified 02/10/18 14:03 ED Review of Systems ROS: Stated complaint: LOW BLOOD PRESSURE Other details as noted in HPI Comment: All other systems reviewed and negative Constitutional: denies: fever Respiratory: denies: cough, shortness of breath Cardiovascular: denies: chest pain Gastrointestinal: denies: abdominal pain, vomiting, diarrhea, melena Neurological: denies: headache Psychiatric: denies: homicidal thoughts, suicidal thoughts ED Past Medical Hx - Past Medical History Hx Hypertension: Yes Hx Diabetes: Yes Hx Arthritis: Yes Hx Psychiatric Treatment: Yes (bipolar, DEPRESSION, schizophrenia, inpatient, outpatient) Additional medical history: HLD - Social History Smoking Status: Never Smoker Substance Use Type: None - Medications Home Medications: Home Medications Medication Instructions Recorded Confirmed Last Taken Type Benztropine [Cogentin] 1 mg PO BID 07/10/16 07/10/16 07/09/16 History Docusate Sodium [Colace] 100 mg PO QAM PRN 07/10/16 07/10/16 07/09/16 History Dutasteride [Avodart] 0.5 mg PO QHS 1207/10/16 07/09/16 History Ergocalciferol (Vitamin D2) 2,000 unit PO QAM 07/10/16 07/10/16 07/09/16 History [Vitamin D2] FLUoxetine [PROzac] 20 mg PO QAM 07/10/16 07/10/16 07/09/16 History Insulin Glargine [Lantus] 20 unit SUB-Q QHS 07/10/16 07/10/16 07/09/16 History Lurasidone HCl [Latuda] 80 mg PO QDAY 07/10/16 07/10/16 07/09/16 History Pantoprazole [Protonix] 40 mg PO QAM 07/10/16 07/10/16 07/09/16 History Rosuvastatin (Nf) [Crestor] 10 mg PO QHS 07/10/16 07/10/16 07/09/16 History Sitagliptin Phos/Metformin HCl 1 tab PO QAM 07/10/16 07/10/16 07/09/16 History [Janumet XR 100-1,000 mg] haloperidoL [Haldol] 10 mg PO QAM 07/10/16 07/10/16 07/09/16 History haloperidoL [Haldol] 15 mg PO QHS 07/10/16 07/10/16 07/09/16 History Gabapentin 300 mg PO Q8HR #20 capsule 05/02/17 Unknown Rx traMADoL [Ultram 50 MG tab] 50 mg PO Q6HR PRN #15 tablet 05/02/17 Unknown Rx Diclofenac Sodium 50 mg PO BID PRN #20 tablet. 12/17/17 Unknown Rx Ibuprofen [Motrin] 600 mg PO Q8H PRN #30 tablet 02/10/18 Unknown Rx ED Physical Exam - General Limitations: No Limitations General appearance: alert, in no apparent distress - Head Head exam: Present: atraumatic, normocephalic - Eye Eye exam: Present: normal appearance, EOMI - ENT ENT exam: Present: mucous membranes moist - Neck Neck exam: Present: normal inspection - Respiratory Respiratory exam: Present: normal lung sounds bilaterally. Absent: respiratory distress - Cardiovascular Cardiovascular Exam: Present: regular rate, normal rhythm - GI/Abdominal GI/Abdominal exam: Present: soft. Absent: distended, tenderness - Extremities Exam Extremities exam: Present: normal inspection - Neurological Exam Neurological exam: Present: alert, oriented X3, CN II-XII intact. Absent: motor sensory deficit - Psychiatric Psychiatric exam: Present: normal affect, normal mood - Skin Skin exam: Present: warm, dry, intact, normal color ED Course Vital Signs 07/02/20 07/02/20 07/02/20 16:58 17:15 19:47 Temperature 97.6 F Pulse Rate 86 60 Respiratory 15 16 15 Rate Blood Pressure 116/50 Blood Pressure 113/48 [Right] O2 Sat by Pulse 98 98 Oximetry ED Medical Decision Making - Lab Data Result diagrams: 07/02/20 17:10 07/02/20 17:10 - EKG Data -: EKG Interpreted by Me EKG shows normal: sinus rhythm, axis, intervals, QRS complexes, ST-T waves Rate: bradycardia (rate 56) - EKG Data Interpretation: no acute changes - Medical Decision Making 64-year-old male with orthostatic hypotension. This is likely due to combination of medications that he is taking in addition to antihypertensives. Patient reports he has been experiencing dizziness for "a while." Patient has no neuro deficits on exam. Labs are unremarkable except for some mild hyponatremia. Patient has been given fluid bolus and is feeling much better at this time. He has been advised to hold his lisinopril and follow-up with his PCP. - Differential Diagnosis Medication effect, dehydration, infection Critical care attestation.: If time is entered above; I have spent that time in minutes in the direct care of this critically ill patient, excluding procedure time. ED Disposition Clinical Impression: Orthostatic hypotension Disposition: DC-01 TO HOME OR SELFCARE Is pt being admited?: No Condition: Stable Instructions: Orthostatic Hypotension Additional Instructions: Your lisinopril could be making your blood pressure very low and making you feel dizzy. You should stop taking your Lisinopril until you are able to follow up with your doctor. Call your doctor's office tomorrow to make an appointment. Return to the ER if you have any concerns and are unable to get an appointment with your doctor. Referrals: LIBERTAD WOODY MD [Primary Care Provider] - 3-5 Days [facility] [Provider Group] - 3-5 Days Time of Disposition: 19:42
[2020-07-02 17:27] LABS: Hematocrit 36.7 % (35.5-45.6); Hemoglobin 12.8 gm/dl (11.8-15.2); Mean Corpuscular HGB Conc 35 % (32-34); Mean Corpuscular Volume 84 fl (84-94); Platelet Count 216 K/mm3 (140-440); Red Blood Count 4.36 M/mm3 (3.65-5.03); Red Cell Distribution Width 12.9 % (13.2-15.2)
[2020-07-02 18:02] LABS: Basophils % (Manual) 0 % (0.0-1.8); Platelet Estimate Consistent w Auto; RBC Morphology Normal; Total Cells Counted 100
[2020-07-02 18:05] LABS: Alanine Aminotransferase 11 units/L (7-56); Albumin 4.2 g/dL (3.9-5); BUN/Creatinine Ratio 17; Blood Urea Nitrogen 22 mg/dL (9-20); Calcium 10.6 mg/dL (8.4-10.2); Hemolysis Index 7
[2020-07-02 19:15] LABS: Bilirubin,Urine NEG (Negative); Blood,Urine NEG (Negative); Color,Urine Yellow (Yellow); Mucus,Urine FEW /HPF; Protein,Urine <15 mg/dL mg/dL (Negative); Urobilinogen,Urine < 2.0 mg/dL (<2.0); WBC,Urine < 1.0 /HPF (0.0-6.0)
[2020-07-02 19:48] VITALS: BP 113/48
== END 2020-07-02 19:55 | disposition home or self-care (01) ==
LOC: ED 16:38
DX: I95.1 Orthostatic hypotension (principal); I10 Essential (primary) hypertension; E11.9 Type 2 diabetes mellitus without complications; M13.88 Other specified arthritis, other site; F31.9 Bipolar disorder, unspecified; F20.89 Other schizophrenia; Z79.899 Other long term (current) drug therapy
CPT/HCPCS: 36415; 80053; 81001; 85007; 85025; 93005; 96360; 99284; J7030